=== PATIENT | female | born 1975 | race Caucasian/White ===

== ENCOUNTER 2017-05-03 05:16 | Day surgery (SDC) | payer BC, MEDICAID ==
[2017-04-27 12:17] LABS: APPEARANCE,URINE CLEAR; BILIRUBIN,URINE NEGATIVE (NEGATIVE); GLUCOSE, URINE NEGATIVE (NEGATIVE); KETONES,URINE NEGATIVE (NEGATIVE); LEUKOCYTE ESTERASE,URINE TRACE (NEGATIVE); NITRITE,URINE NEGATIVE (NEGATIVE); PROTEIN,URINE NEGATIVE (NEGATIVE); URINE SPECIFIC GRAVITY 1.016; UROBILINOGEN,URINE NEGATIVE mg/dL (<2.0)
[2017-04-27 12:48] LABS: HEMATOCRIT 34.5 % (36.0-47.0); HEMOGLOBIN 11.6 g/dL (12.0-15.5); HGB HCT DIFFERENCE 0.3; MEAN CORPUSCULAR HEMOGLOBIN 26.8 pg (27.0-33.4); MEAN CORPUSCULAR HGB CONC 33.8 g/dL (32.0-36.0); MEAN CORPUSCULAR VOLUME 79 fl (80-97); RED BLOOD COUNT 4.34 10^6/uL (3.72-5.28); WHITE BLOOD COUNT 10.1 10^3/uL (4.0-10.5)
[2017-04-27 13:11] LABS: ALANINE AMINOTRANSFERASE 33 U/L (9-52); ALBUMIN 4.6 g/dL (3.5-5.0); ALKALINE PHOSPHATASE 72 U/L (38-126); ANION GAP 15 (5-19); ASPARTATE AMINO TRANSFERASE 23 U/L (14-36); BILIRUBIN,DIRECT 0.4 mg/dL (0.0-0.4); BILIRUBIN,TOTAL 0.4 mg/dL (0.2-1.3); BLOOD UREA NITROGEN 13 mg/dL (7-20); CALCIUM 9.4 mg/dL (8.4-10.2); CARBON DIOXIDE 23 mmol/L (22-30); CHLORIDE 103 mmol/L (98-107); CREATININE RESULT 0.74 mg/dL (0.52-1.25); GLUCOSE 89 mg/dL (75-110); POTASSIUM 4.4 mmol/L (3.6-5.0); SODIUM 140.6 mmol/L (137-145); TOTAL PROTEIN 7.3 g/dL (6.3-8.2)
--- NOTE | 2017-04-27 17:37 | EKG REPORT ---
SEVERITY:- NORMAL ECG - SINUS RHYTHM : Confirmed by: Swapna Mccartney MD 27-Apr-2017 17:36:59
[~2017-05-03 05:16] MED LIST: CLINDAMYCIN 900 MG/D5W RTU 50 ML IV PRN; GENTAMICIN SULFATE 120 MG in DEXTROSE 5%-WATER 100 ML IV PRN; LACTATED RINGERS 1000 ML IV PRN; LIDOCAINE 0.5% INJ-PF (5 MG/ML) 50 ML SDV SUBCUT PRN
[2017-05-03] MEDS ORDERED: ALBUTEROL SULFATE 0.083% NEB 2.5 MG/3 ML AMPUL NEB ONE (06:39)
[2017-05-03] MEDS ORDERED: FENTANYL CITRATE INJ/PF 250 MCG/5 ML AMPULE ONE (06:48)
[2017-05-03] MEDS ORDERED: FENTANYL CITRATE INJ/PF 100 MCG/2 ML AMPUL ONE (06:48)
[2017-05-03] MEDS ORDERED: ACETAMINOPHEN 100 ML IV ONE (06:49)
[2017-05-03] MEDS ORDERED: PROPOFOL INJ 200 MG/20 ML VIAL IV ONE ×2 (06:49→10:12)
[2017-05-03] MEDS ORDERED: ONDANSETRON HCL INJ/PF 4 MG/2 ML SDV ONE (06:49)
[2017-05-03] MEDS ORDERED: EPHEDRINE SULFATE INJ 50 MG/1 ML AMPULE ONE (06:49)
[2017-05-03] MEDS ORDERED: MIDAZOLAM 2 MG/2 ML INJ ONE (06:49)
--- NOTE | 2017-05-03 06:49 | RADIOLOGY REPORT (SQ) ---
EXAM DESCRIPTION: CHEST SINGLE VIEW COMPLETED DATE/TIME: 05/03/2017 6:23 am REASON FOR STUDY: preop COMPARISON: None. EXAM PARAMETERS: NUMBER OF VIEWS: One view. TECHNIQUE: Single frontal radiographic view of the chest acquired. RADIATION DOSE: NA LIMITATIONS: None. FINDINGS: LUNGS AND PLEURA: No opacities, masses or pneumothorax. No pleural effusion. MEDIASTINUM AND HILAR STRUCTURES: No masses. Contour normal. HEART AND VASCULAR STRUCTURES: Heart normal in size. Normal vasculature. BONES: No acute findings. HARDWARE: None in the chest. OTHER: No other significant finding. IMPRESSION: NO ACUTE RADIOGRAPHIC FINDING IN THE CHEST. TECHNICAL DOCUMENTATION: JOB ID: [id number]
[2017-05-03] MEDS ORDERED: MORPHINE SULFATE 10 MG/ML INJ ONE ×2 (06:50→10:52)
[2017-05-03] MEDS ORDERED: FAMOTIDINE INJ/PF 20 MG/2 ML SDV IV ONE (07:28)
[2017-05-03] MEDS ORDERED: DIPHENHYDRAMINE HCL 50 MG/ML VIAL IV PRN (08:55)
[2017-05-03] MEDS ORDERED: FENTANYL CITRATE INJ/PF 100 MCG/2 ML AMPUL IV PRN ×3 (08:55)
[2017-05-03] MEDS ORDERED: PROMETHAZINE HCL INJ 25 MG/1 ML VIAL IV PRN (08:55)
[2017-05-03] MEDS ORDERED: MORPHINE SULFATE 10 MG/ML INJ IV PRN ×2 (08:55→10:13)
[2017-05-03] MEDS ORDERED: IBUPROFEN 800 MG TABLET PO PRN (10:12)
[2017-05-03] MEDS ORDERED: ALBUTEROL SULFATE HFA (90 MCG/PUFF) 200 PUFF/8.5 GM MDI IH ONE (10:12)
[2017-05-03] MEDS ORDERED: OXYCODONE-ACETAMINOPHEN 5-325 MG TABLET PO PRN (10:13)
[2017-05-03] MEDS ORDERED: RINGERS SOLUTION,LACTATED 1,000 ML IV PRN (10:14)
--- NOTE | 2017-05-03 10:25 | OPERATIVE REPORT E ---
Operative Report NAME: LORA DRISCOLL : 1975 AGE: 41Y DATE OF SURGERY: 05/03/2017 ROOM: PREOPERATIVE DIAGNOSES: 1. Abnormal uterine bleeding. 2. Endometriosis. 3. Chronic pelvic pain. POSTOPERATIVE DIAGNOSES: 1. Abnormal uterine bleeding. 2. Endometriosis. 3. Chronic pelvic pain. PROCEDURE: Robotic assisted total laparoscopic hysterectomy with bilateral salpingectomy and lysis of adhesions. SURGEON: SAVANA BERGER M.D. ANESTHESIA: Dr. Ambriz with general. FINDINGS: A 10-week uterus with adhesions of the left ovary to the descending colon, enlarged ovaries, small amount of possible red *------* uterosacral ligaments that was transected and fulgurated during the procedure. COMPLICATIONS: None. ESTIMATED BLOOD LOSS: 50 mL. SPECIMENS REMOVED: Uterus, cervix, and bilateral fallopian tubes. PROCEDURE IN DETAIL: The patient was taken to the operating room and prepared and draped in a normal sterile fashion in a dorsal lithotomy position. Under sterile conditions, a catheter was placed to gravity and the sterile speculum was then placed into the vagina. The cervix was prepped with Betadine. The cervix was grasped on the anterior lip of the cervix with a single-tooth tenaculum. The cervix was then dilated to accommodate a medium VCare and this was placed in a normal fashion. Speculum was then removed, gloves were changed, and attention was turned to the upper portion of the case. An incision was made at the patient's previous incision site approximately 1-1/2 cm above the umbilicus. The same scar was used and this was transected using an 11 blade. The subcutaneous layers were cleared with a hemostat until the fascia was located and the fascia was grasped with a Evans and then transected carefully in layers with Kaye scissors until the peritoneal cavity was entered. The peritoneal cavity was entered and the fascia was transected and widened using the Kaye scissors until we had approximately 2 to 2-1/2 cm of width. The GelPOINT was then placed in the normal fashion and the camera port and the AirSeal were introduced through the GelPOINT. The abdomen was then inflated with approximately 2 L of CO2 gas through the AirSeal. The camera was then introduced through the camera port. The patient was placed in steep Trendelenburg and the above findings were noted, specifically the adhesions of the left ovary to the pelvic side wall and the descending colon. Under direct visualization, two 5 mm ports were placed approximately 10 cm on either side of the umbilicus. The robot was then docked and the instruments were placed with the monopolar scissors on the right and the vessel sealer on the left. I then de-scrubbed and sat at the console where I then started with the adhesions of the left adnexa and transected these using the monopolar scissors in blunt dissection until I was able to free the fallopian tube from the adhesions. The fallopian tube was then removed using the monopolar scissors and the vessel sealer as needed carefully. The fallopian tube was transected at the fundus of the uterus and this was removed through the assistance port by my first aid instructor, Gisselle Rodríguez. The utero-ovarian ligament was then transected using the vessel sealer and the rest of the uterine artery was skeletonized and transected using the vessel sealer down to the level of the internal cervical os where the bladder was then created with the monopolar scissors and carried prison across the anterior surface of the uterus. We then turned our attention to the right adnexa where there wee no adhesions noted and the fallopian tube was remove with the monopolar scissors in a similar fashion and transected at the fundus with the vessel sealer. This was then removed through the assistance port. Again the utero-ovarian ligament was transected using the vessel sealer and carried through to the internal cervic os where the bladder flap was completed using the monopolar scissors. The bladder flap was then dissected well away from the anterior surface of the uterus. The VCare was noted through the mucosa. The rest of the uterine artery was transected and coagulated using the vessel sealer. Then beginning on the anterior portion of the cervix which was presenting itself more readily, I began with a colporrhaphy using the monopolar scissors and carrying this under circumferential manner around the cervix until the specimen was completely freed. The specimen was then removed through the vaginal defect without difficulty. The instruments were then replaced with a Elio Needle [employer] Checker and the Prograsp, and a V-Loc suture was introduced through the assistance port. The V-Loc was then used to close the vaginal cuff in a normal fashion. The suture was cut and removed and the needle was removed through the assistance port. The ureters were inspected carefully and found to be normal in appearance with no dilation or hydroureter noted. A small amount of adhesions were bluntly dissected on the left adnexa trying to free up the ovary a little bit more and this was done without difficulty. The peritoneal cavity was then copiously irrigated and suctioned with good hemostasis noted throughout. The instruments were then removed. The robot was undocked. The fascia was grasped with 2 Kochers and was sutured using a 0 Vicryl and a UR6 needle. The subcutaneous layer was closed with plain catgut and the skin was closed with 4-0 Vicryl at all 3 sites. The patient tolerated procedure well. Sponge, lap and needle counts were correct x2. The patient was taken to recovery in stable condition. DICTATING PHYSICIAN: SAVANA BERGER M.D. [id number] Y#: [id number] ID: [id number] JOB#: [id number] ACCT: [id number] cc:SAVANA BERGER M.D. >
[2017-05-03] MEDS ORDERED: KETOROLAC TROMETHAMINE INJ/PF 30 MG/1 ML SDV ONE (10:26)
[2017-05-03] MEDS: FENTANYL CITRATE INJ/PF 100 MCG/2 ML AMPUL ONE ×2 (10:40→10:45)
[2017-05-03] MEDS ORDERED: VECURONIUM BROMIDE INJ 10 MG VIAL IV ONE (11:57)
[2017-05-03] MEDS ORDERED: PHENYLEPHRINE HCL INJ/PF 10 MG/1 ML SDV ONE (11:57)
[2017-05-03] MEDS ORDERED: DEXAMETHASONE SOD PHOSPHATE INJ 4 MG/1 ML VIAL ONE (11:57)
[2017-05-03] MEDS ORDERED: SUCCINYLCHOLINE CHLORIDE INJ 200 MG/10 ML VIAL ONE (11:57)
[2017-05-03] MEDS ORDERED: NEOSTIGMINE METHYLSULFATE 10 MG/10 ML VIAL ONE (11:57)
[2017-05-03] MEDS ORDERED: LIDOCAINE 2% INJ-PF (20 MG/ML) 10 ML AMPUL ONE (11:57)
[2017-05-03] MEDS ORDERED: GLYCOPYRROLATE INJ 0.4 MG/2 ML VIAL ONE (11:57)
[2017-05-03] MEDS ORDERED: MORPHINE SULFATE 10 MG/ML INJ IV ONE (12:00)
[2017-05-03] MEDS ORDERED: KETOROLAC TROMETHAMINE INJ/PF 30 MG/1 ML SDV IV SCH (14:00)
[2017-05-03] MEDS ORDERED: ACETAMINOPHEN 100 ML IV SCH (14:00)
--- NOTE | 2017-05-03 17:30 | PDOC PROGRESS REPORT ---
Subjective Subjective:: Pt reports good pain control. No n/v. No vaginal bleeding Desires to go home tonight Physical Exam - Physical Exam Vital Signs: Temp Pulse Resp BP Pulse Ox 97.8 F 88 20 112/67 96 05/03/17 11:13 05/03/17 11:13 05/03/17 11:13 05/03/17 11:13 05/03/17 11:13 Intake & Output 05/02/17 05/03/17 05/04/17 06:59 06:59 06:59 Intake Total 0 1410 Output Total 290 Balance 0 1120 Weight 104 kg General appearance: PRESENT: no acute distress, cooperative, well-developed - Incisions clean/dry/intact GI/Abdominal exam: PRESENT: normal bowel sounds, soft Result Laboratory Results: 04/27/17 11:49 04/27/17 11:49 Impressions: Chest X-Ray 05/03/17 00:00 IMPRESSION: NO ACUTE RADIOGRAPHIC FINDING IN THE CHEST. Assessment & Plan - Diagnosis (1) Uterine bleeding, dysfunctional Is this a current diagnosis for this admission?: Yes - Time Time Spent with patient: Less than 15 minutes Medications reviewed and adjusted accordingly: Yes Anticipated discharge: Home - Will d/c home Precautions given Keep f/u appt with Dr Kelley
[2017-05-03 18:02] VITALS: BP 147/86
[2017-05-03] MEDS ORDERED: METRONIDAZOLE 500 MG/NS RTU 100 ML IV SCH (22:00)
== END 2017-05-03 18:25 | disposition home or self-care (01) ==
LOC: OROUT 05:16 → 2N 11:29 → OROUT 18:25
PROVIDERS: ATTEND Obstetrics & Gynecology
PROC: 0UTC4ZZ Resection of Cervix, Percutaneous Endoscopic Approach (ICD-10-PCS; 2017-05-03)
PROC: 0UT74ZZ Resection of Bilateral Fallopian Tubes, Percutaneous Endoscopic Approach (ICD-10-PCS; 2017-05-03)
PROC: 8E0W4CZ Robotic Assisted Procedure of Trunk Region, Percutaneous Endoscopic Approach (ICD-10-PCS; 2017-05-03)
PROC: 0UT94ZZ Resection of Uterus, Percutaneous Endoscopic Approach (ICD-10-PCS; principal; 2017-05-03 07:30)
DX: N80.0 Endometriosis of uterus (principal); N93.9 Abnormal uterine and vaginal bleeding, unspecified; G89.29 Other chronic pain; R10.2 Pelvic and perineal pain; N72 Inflammatory disease of cervix uteri; D25.9 Leiomyoma of uterus, unspecified; J45.909 Unspecified asthma, uncomplicated; Z79.51 Long term (current) use of inhaled steroids; K21.9 Gastro-esophageal reflux disease without esophagitis; Z79.899 Other long term (current) drug therapy; Z88.0 Allergy status to penicillin
CPT/HCPCS: 58571; S2900; 36415; 71010; 80053; 81001; 81025; 840; 85027; 86850; 86900; 86901; 88307; 93005; 93010; J0131; J0330; J1100; J1580; J1885; J2250; J2270; J2370; J2405; J2704; J3010; J3490; S0028